=== PATIENT | female | born 1955 | race Caucasian/White ===

== ENCOUNTER 2022-08-03 15:17 | Emergency (ER) | payer MEDICARE, BC, SELFPAY ==
--- NOTE | ~2022-08-03 | XR_ITS ---
EXAMINATION: XR chest 2V DATE: 08/03/2022 15:56 INDICATION: Chest pressure. Dizziness. TECHNIQUE: Frontal and lateral views of the chest were obtained. COMPARISON: None. FINDINGS: The chest demonstrates clear lungs without pneumonia, pleural effusion, or pneumothorax. Th e heart size is normal. IMPRESSION: 1. No acute cardiopulmonary disease. Reviewed, dictated and finalized at location A. [employer]
--- NOTE | 2022-08-03 15:20 | ECG_ITS ---
Measurements Intervals [place] Rate: 65 P: 28 OK: 108 QRS: 23 QRSD: 85 T: 26 QT: 373 QTc: 388 Interpretive Statements SINUS RHYTHM WITH SHORT OK INTERVAL BASELINE ARTIFACT- I, V1 BORDERLINE ECG NO PREVIOUS ECG AVAILABLE FOR COMPARISON Electronically Signed On 08-03-2022 19:07:42 BRICK MASON by Angel Puentes D.O.
[2022-08-03 15:31] VITALS: BP 161/74; PULSE 67; RESP 15; TEMP 36.4; O2SAT 100
--- NOTE | 2022-08-03 16:56 | ED.CHESTPAIN ---
HPI - Chest Pain General Chief Complaint: Chest Pain Stated Complaint: chest pressure x 24 hours and dizzy x 3 days Time Seen by Provider: 08/03/22 16:55 History of Present Illness HPI narrative: Patient is a 66 year old female who is previously healthy here for evaluation of chest pressure x 24 hours. Patient states the pain came on while she was at rest, described as a pressure sensation located in her epigastric region. Denies history of previous sensation. Pain has been intermittent since onset, denies exertional component to pain. Attempted maalox without relief. Reports mild nausea but no vomiting, SOB, diaphoresis, fevers, chills, diarrhea, lower abdominal pain, constipation. Hx negative stress test >20 years ago; lives active lifestyle and has no pain with physical activity. She additionally reports intermittent dizziness over the past 3 days which is not atypical for her, this is been worked up in the past and reportedly attributed to sinus infection. She denies any upper respiratory infectious symptoms at this time including ear pain or congestion. Related Data Allergies Allergy/AdvReac Type Severity Reaction Status Date / Time Sulfa (Sulfonamide Allergy Unknown Verified 08/03/22 15:18 Antibiotics) Review of Systems Review of Systems: Gen.: Reports dizziness denies fevers or chills Eyes: Denies eye pain or visual change ENT: Denies congestion Respiratory: Denies shortness of breath or cough CV: Reports chest pain GI: Denies abdominal pain nausea, emesis or diarrhea denies burning, urgency, frequency or hematuria Musculoskeletal: Denies back pain or muscle pain Neuro: Denies numbness, tingling, weakness or focal weakness Skin: Denies rash Except as documented, all other systems reviewed and negative Exam Narrative: APPEARANCE: Well appearing, no pain in distress, well-nourished. Head: Normocephalic and atraumatic. EYES: PERRLA/EOMI, conjunctivae clear NOSE: No nasal drainage EARS: External ear normal in appearance THROAT: Oropharynx is clear. Mucous membranes are moist. NECK: Supple. No adenopathy, no masses. RESPIRATORY: Airway patent, respirations nonlabored. Clear to auscultation bilaterally, no rales, rhonchi, wheezing. CARDIOVASCULAR: Regular rate and rhythm without murmurs, rubs, or gallops. ABDOMINAL: Normoactive bowel sounds. Soft, nontender, nondistended. No rebound tenderness or guarding. MUSCULOSKELETAL: No tenderness to palpation of the chest extremities are warm and well-perfused. Moves all extremities well. No edema. NEURO: Normal speech. No focal neurologic deficits. SKIN: Skin is warm and dry. No rashes. PSYCHIATRIC: Normal affect/mood.. Course Vital Signs Vital signs: Vital Signs Temperature 97.6 F 08/03/22 15:31 Pulse Rate 67 08/03/22 15:31 Respiratory Rate 15 08/03/22 15:31 Blood Pressure 161/74 H 08/03/22 15:31 Pulse Oximetry 100 08/03/22 15:31 Oxygen Delivery Room Air 08/03/22 15:31 Temperature 97.6 F 08/03/22 15:31 Pulse Rate 63 08/03/22 18:16 Respiratory Rate 16 08/03/22 18:16 Blood Pressure 161/74 H 08/03/22 15:31 Pulse Oximetry 100 08/03/22 18:16 Oxygen Delivery Room Air 08/03/22 18:16 MDM - Chest Pain MDM Narrative Medical decision making narrative: 66-year-old female here for evaluation of chest pain over the past day with some dizziness that she attributes to sinus issues. Heart and lungs are clear to auscultation, no cranial nerve deficits on exam, patient not currently dizzy. EKG and troponin are nonischemic. Basic labs and chest x-ray are reassuring. Patient feeling proved after GI cocktail in the ED. Dimer is negative. Offered admission for stress testing which she declined, I feel outpatient management is appropriate at this time given she has a heart score of 2. Very unlikely ACS by clinical history. Return precautions were discussed and she voiced understanding. Lab Data 08/03/22 18:04 08/03/22 18:04
[2022-08-03 18:10] LABS: Basophils Absolute Auto 0.1 K/mm3 (0.0-0.1); Basophils Percent Auto 1.2 % (0.2-1.2); Eosinophils Absolute Auto 0.1 K/mm3 (0-0.3); Eosinophils Percent Auto 1.5 % (0-4.4); Hematocrit 43.3 % (37.0-47.0); Immature Granulocyte Absolute 0.01 K/mm3 (0.00-0.031); Immature Granulocyte Percent A 0.1 % (0-0.5); Lymphocytes Absolute Auto 3.14 K/mm3 (0.9-3.2); Lymphocytes Percent Auto 36.2 % (18.3-44.2); Mean Corpuscular HGB Conc 32.3 g/dl (32-36); Mean Corpuscular Hemoglobin 29.7 pg (26-34); Mean Corpuscular Volume 91.9 fl (80-100); Mean Platelet Volume 11.3 fl (7.4-10.4); Monocytes Absolute Auto 0.7 K/mm3 (0.1-0.6); Monocytes Percent Auto 7.5 % (2.6-8.5); Neutrophils Absolute Auto 4.6 K/mm3 (1.3-6.7); Neutrophils Percent Auto 53.5 % (45.5-73.1); Platelet Count Result 339 k/mm3 (150-375); Red Blood Count 4.71 M/mm3 (4.2-5.4); Red Cell Distribution Width 13.4 % (11.5-14.5); White Blood Count 8.7 K/mm3 (4.5-10.0)
[2022-08-03 18:14] VITALS: PULSE 63
[2022-08-03] MEDS: BELLADONNA ALK/PHENOB ELIX 10 ML, MAG HYDROX/ALUMINUM HYD/SIMETH 30 ML, LIDOCAINE HCL 2... PO (18:15)
[2022-08-03 18:16] VITALS: PULSE 63; RESP 16; O2SAT 100
[2022-08-03 18:19] LABS: Alanine Aminotransferase 17 U/L (6-35); Albumin Level 4.3 g/dL (3.5-5.1); Alkaline Phosphatase 42 U/L (38-126); Anion Gap 9 mmol/L (8-16); Aspartate Amino Transferase 25 U/L (14-36); Bilirubin,Total 0.8 mg/dL (0.2-1.3); Blood Urea Nitrogen 17 mg/dL (7-17); Calcium 8.8 mg/dL (8.4-10.2); Carbon Dioxide 23 mmol/L (22-30); Chloride 104 mmol/L (98-107); Estimated CRCL calculation 51 ml/min; Estimated Glomerular Filt Rate > 60; Glucose 84 mg/dL (65-110); Lipase 161 U/L (23-300); Potassium 4.5 mmol/L (3.4-5.0); Sodium 136 mmol/L (137-145)
[2022-08-03 18:28] LABS: Partial Thromboplastin Time 29.1 SECONDS (22.3-36.8); Prothrombin Time 13.1 Seconds (11.1-14.7)
[2022-08-03 18:31] LABS: D Dimer 0.43 ug/mL (<0.48); Troponin I < 0.012 ng/mL (0.000-0.034)
== END 2022-08-03 19:25 | disposition home or self-care (01) ==
PROVIDERS: Emergency Medicine; Emergency Provider Physician Assistant
DX: R07.89 Other chest pain (principal); R94.31 Abnormal electrocardiogram [ECG] [EKG]
CPT/HCPCS: 36415; 71046; 80053; 83690; 84484; 85025; 85380; 85610; 85730; 93005; 99284; A9270